=== PATIENT | female | born 1985 | race African-American/Black ===

== ENCOUNTER 2021-04-26 05:14 | Emergency (ER) | payer OTHER ==
[~2021-04-26] VITALS: Ht 180.3 cm; Wt 77.8 kg
--- NOTE | 2021-04-26 05:22 | PHYS DOC ---
Past History Additional Past Medical Histor: lactose intolerant Past Surgical History: No Surgical History General Adult EDM: Chief Complaint: ABDOMINAL PAIN HPI: HPI: ".. I am lactose intolerant... And I did eat some ice cream last night... When I do really sometimes gets sick... 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 Patient attributes her abdomen discomfort to intake of ice cream last night.. Patient denies any intake of other questionable food. No history of trauma. No history of travel. No history of significant ill contacts. Patient has not had COVID vaccination. Patient normally healthy. Patient not had any previous pregnancies. No history of vaginal discharge. No history of ovarian cyst. No history of immunosuppression. Review of Systems: Review of Systems: Constitutional: Denies fever or chills Eyes: Denies change in visual acuity HENT: Denies nasal congestion or sore throat Respiratory: Denies cough or shortness of breath Cardiovascular: Denies chest pain or edema GI: Complains of severe abdominal pain, nausea. Patient denies, vomiting, bloody stools or diarrhea : Denies dysuria Musculoskeletal: Denies back pain or joint pain Integument: Denies rash Neurologic: Denies headache, focal weakness or sensory changes Endocrine: Denies polyuria or polydipsia Lymphatic: Denies swollen glands Psychiatric: Denies depression or anxiety Family History: Family History: Noncontributory presentation Current Medications: Current Meds: See nursing for home meds Allergies: Allergies: Lactose Physical Exam: PE: Constitutional: Well developed, well nourished, inacute distress, non-toxic appearance. [] HENT: Normocephalic, atraumatic, bilateral external ears normal, oropharynx moist, no oral exudates, nose normal. [] Eyes: PERRLA, EOMI, conjunctiva normal, no discharge. [] Neck: Normal range of motion, no tenderness, supple, no stridor. [] Cardiovascular:Heart rate regular rhythm, no murmur [] Lungs & Thorax: Bilateral breath sounds equal apex on auscultation [] Abdomen: Bowel sounds hyperactive,, soft, generalized tenderness, no masses, no pulsatile masses. Abdomen tympanic. Rebound to left and mid abdomen. Skin: Warm, dry, no erythema, no rash. [] Back: No tenderness, no CVA tenderness. [] Extremities: No tenderness, no cyanosis, no clubbing, ROM intact, no edema. No cording appreciated. No Trousseau sign. Neurologic: Alert and oriented X 3, normal motor function, normal sensory function, no focal deficits noted. [] Psychologic: Affect anxious,, judgement normal, mood normal. [] EKG: EKG: [] Radiology/Procedures: Radiology/Procedures: [][address] [address] IMAGING REPORT Signed PATIENT: JAY WARD ACCOUNT: [id number] : 1985 LOCATION: ER AGE: 35 SEX: F EXAM STATUS: REG ER ORD. PHYSICIAN: WILY BLACK MD REASON: pain - umbilical pain PROCEDURE: ACUTE ABDOMEN SERIES Three-view acute abdominal series. HISTORY: Periumbilical pain 3 views were taken for an acute abdominal series. Lungs are free of infiltrates. Heart is normal in size. There is no effusion. There is no free air on the upright view the abdomen. There are no abnormal air-fluid levels. Bowel pattern of the abdomen is unremarkable. There are no abnormal calcifications. IMPRESSION: 1. No acute chest disease. 2. No bowel obstruction or acute finding in the abdomen. Electronically signed by: Checo Braker MD (04/26/2021 7:00 AM) [facility] DICTATED AND SIGNED BY: CHECO BARKER MD DATE: 04/26/21 0658 CC: KAMLESH ORTEGAP-C; WILY BLACK MD ~MTH0 0 Heart Score: C/O Chest Pain: N/A Risk Factors: Risk Factors: DM, Current or recent (<one month) smoker, HTN, HLP, family history of CAD, obesity. Risk Scores: Score 0 - 3: 2.5% MACE over next 6 weeks - Discharge Home Score 4 - 6: 20.3% MACE over next 6 weeks - Admit for Clinical Observation Score 7 - 10: 72.7% MACE over next 6 weeks - Early Invasive Strategies Course & Med Decision Making: Course & Med Decision Making Pertinent Labs and Imaging studies reviewed. (See chart for details) Patient received nausea meds Zofran, Toradol for the pain and fluid bolus of LR. Patient's overall condition improved to baseline. Discharged home. Patient return if any concerns. Patient to avoid further lactose foods. Impression: 1. Abdomen Pain 2. Hx. Lactose Intolerant. [] Dragon Disclaimer: Dragon Disclaimer: This electronic medical record was generated, in whole or in part, using a voice recognition dictation system. Departure Departure: Scripts Hydrocodone/Ibuprofen (HYDROCODONE-IBUPROFEN 7.5-200 ) 1 Each Tablet 1 TAB PO PRN Q6HRS PRN for PAIN, #30 TAB 0 Refills Prov: WILY BLACK MD 04/26/21 Famotidine (PEPCID) 20 Mg Tablet 20 MG PO BID for gerd for 30 Days, #60 TAB Prov: WILY BLACK MD 04/26/21 Ondansetron Hcl (ZOFRAN) 4 Mg Tablet 8 MG PO QIDPRN PRN for NAUSEA/VOMITING, #30 TAB Prov: WILY BLACK MD 04/26/21 Dragon Disclaimer This chart was dictated in whole or in part using Voice Recognition software in a busy, high-work load, and often noisy Emergency Department environment. It may contain unintended and wholly unrecognized errors or omissions. WILY BLACK MD Apr 26, 2021 05:22
[2021-04-26] MEDS: FAMOTIDINE 20 MG/2 ML VIAL IVP ONE (06:15)
[2021-04-26] MEDS: ONDANSETRON PF 4 MG/2 ML VIAL. IVP ONE (06:16)
[2021-04-26] MEDS: IV RINGERS SOLUTION,LACTATED 1,000 ML IV SCH (06:16)
[2021-04-26 07:03] LABS: BASO % 1 % (0-3); EOS # 0.2 x10^3/uL (0.0-0.7); EOS % 3 % (0-3); HEMOGLOBIN 11.4 g/dL (12.0-15.5); LYMPH # 1.5 x10^3/uL (1.0-4.8); LYMPH % 29 % (24-48); MEAN CORPUSCULAR HEMOGLOBIN 28 pg (25-35); MEAN CORPUSCULAR HGB CONC 33 g/dL (31-37); MEAN CORPUSCULAR VOLUME 85 fL (79-100); MONO # 0.4 x10^3/uL (0.0-1.1); MONO % 7 % (0-9); NEUT # 3.2 x10^3uL (1.8-7.7); NEUT % 61 % (31-73); PLATELET COUNT 228 x10^3/uL (140-400); RED BLOOD COUNT 4.13 x10^6/uL (3.50-5.40); RED CELL DISTRIBUTION WIDTH 13.9 % (11.5-14.5); WHITE BLOOD COUNT 5.3 x10^3/uL (4.0-11.0)
--- NOTE | 2021-04-26 07:03 | RAD ---
Three-view acute abdominal series. HISTORY: Periumbilical pain 3 views were taken for an acute abdominal series. Lungs are free of infiltrates. Heart is normal in s ize. There is no effusion. There is no free air on the upright view the abdomen. There are no abnorma l air-fluid levels. Bowel pattern of the abdomen is unremarkable. There are no abnormal calcification s. IMPRESSION: 1. No acute chest disease. 2. No bowel obstruction or acute finding in the abdomen. Electronically signed by: Checo Barker MD (04/26/2021 7:00 AM) [facility]
[2021-04-26 07:13] LABS: CALCIUM 8.8 mg/dL (8.5-10.1); CREATININE 0.8 mg/dL (0.6-1.0); GFR 99.4; POTASSIUM 3.8 mmol/L (3.5-5.1)
[2021-04-26 07:13] LABS: BILIRUBIN,URINE NEG (NEG); CLARITY,URINE CLEAR; COLOR,URINE YELLOW; GLUCOSE,URINE NEG (NEG); NITRITE,URINE NEG (NEG)
[2021-04-26 07:15] LABS: AMORPHOUS SEDIMENT,UR PRESENT /HPF; BACTERIA,URINE FEW /HPF (0-FEW); RBC,URINE RARE /HPF (0-2); SQUAMOUS EPITHELIAL CELL,UR MANY /LPF
[2021-04-26 07:18] LABS: BARBITURATES NEG (NEG); BENZODIAZEPINES NEG (NEG); CANNABINOIDS NEG (NEG); COCAINE NEG (NEG); METHADONE NEG (NEG); OPIATES NEG (NEG); PHENCYCLIDINE NEG (NEG)
[2021-04-26 07:19] LABS: ALBUMIN 3.8 g/dL (3.4-5.0); DIRECT BILIRUBIN 0.2 mg/dL (0.0-0.2); TOTAL BILIRUBIN 0.3 mg/dL (0.2-1.0); TOTAL PROTEIN 6.4 g/dL (6.4-8.2)
[2021-04-26 07:20] LABS: AMPHETAMINE/METHAMPHETAMINE NEG (NEG)
[2021-04-26] MEDS ORDERED: HYDR-1179 PO (07:29)
[2021-04-26] MEDS ORDERED: ONDA4TAB7 PO (07:29)
[2021-04-26] MEDS ORDERED: FAMO-63 PO (07:29)
[2021-04-26] MEDS: KETOROLAC 30 MG/ML VIAL. IVP ONE (07:34)
[2021-04-26 08:10] VITALS: BP 106/62
== END 2021-04-26 08:15 | disposition home or self-care (01) ==
LOC: ER 05:14
DX: R10.33 Periumbilical pain (principal)
CPT/HCPCS: 36415; 74022; 80048; 80076; 80307; 81001; 81025; 82150; 82550; 83690; 85025; 96361; 96374; 96375; 99284; J1885; J2405; J3490; J7120